=== PATIENT | male | born 1950 | race Caucasian/White ===

== ENCOUNTER 2019-04-24 07:23 | Observation (INO) | payer MEDICARE ==
--- NOTE | 2019-04-08 07:59 | HP ---
CC: Dr. Cristhian Bowden * HISTORY AND PHYSICAL: DATE OF PLANNED ADMISSION AND SURGERY: 04/24/19 HISTORY OF PRESENT ILLNESS: Mr. Loo is a 68-year-old white male who is admitted with prostate enlargement, bladder outlet obstruction for transurethral resection of the prostate. I have been following Mr. Loo for the last 16 months because of symptoms of bladder outlet obstruction. He initially presented because of urethral bleeding associated with straining for a bowel movement. He was noted then to have nocturia, day frequency, slow stream, hesitancy, and a feeling of incomplete bladder emptying. He was worked up for the gross hematuria and had a renal ultrasound, which showed 2 small nonobstructing left renal calculi. No other abnormalities were noted in the kidneys. He had an elevated postvoid residual of 250 cc. The patient was started on tamsulosin 0.4 mg daily. Cystoscopy showed a large obstructing prostate mostly by a prominent median lobe. The bladder showed diffuse trabeculations, no suspicious bladder lesions seen, no calculi or diverticulae. He was then started on finasteride. On follow-up visits, he reported only modest improvement in his voiding. He has not had any recurrences of the gross hematuria. While on the finasteride and the tamsulosin, he continued to have bothersome voiding symptoms with day frequency of less than every hour, nocturia about twice, slow stream, hesitancy , and strong urgency, but no incontinence. The patient was then worked up with urodynamic studies. The study showed a high voiding detrusor pressure, indicating good detrusor function. His flow was slow and intermittent. He had an elevated post-void residual of 220 cc. The urodynamic studies were consistent with bladder outlet obstruction making him a good candidate for TURP. PAST MEDICAL HISTORY AND SYSTEM REVIEW: He is in excellent health. He denies any cardiac or pulmonary diseases or symptoms. His only other medication is Ambien for sleep. The patient had a physical exam by Dr. Bowden two months ago including lab work and no abnormalities were noted and no other medication was recommended. FAMILY HISTORY: Negative for prostate carcinoma. His father at the age of 62 from abdominal aortic aneurysm. SOCIAL HISTORY: The patient is a former smoker and he stopped in 1989. He does not drink alcohol. He does not use any recreational drugs. He denies any allergies to medications. PHYSICAL EXAMINATION GENERAL: A pleasant, healthy and fit-looking white male who looks good for his age. VITAL SIGNS: Blood pressure 120/80, pulse of 64, oxygen saturation 96% on room air. LUNGS: Clear. HEART: Regular and rhythmic. No murmurs. ABDOMEN: Soft. No masses. No tenderness. No CVA tenderness. EXTERNAL GENITALIA: Normal. He is circumcised. No penile lesions. Normal testes and no inguinal hernias. RECTAL: Exam showed an enlarged, but non-suspicious prostate. LABORATORY DATA: The patient had a PSA of 2.2 in November 2016; it was down to 1.4 while on finasteride. IMPRESSION AND PLAN: Symptomatic bladder outlet obstruction with elevated postvoid residual, slow stream, and high voiding detrusor pressure on urodynamic studies, large obstructing prostate and large median lobe on cystoscopy, making him a good candidate for TURP. I discussed the operation in detail with the patient. Some of the potential complications including hematuria, urinary tract infection, small incidence of urinary incontinence, and high incidence of retrograde ejaculation. I also discussed the alternative procedures; however, considering the large median lobe , his best long-term result will be with the TURP. All his questions were answered. [id number]/[facility] #: [id number] KELLY
[~2019-04-24 07:23] MED LIST: Buffered Lidocaine 1% SYRIN* 1 ML/SYRINGE INTRADERM ONE; Dexamethasone IV* 4 MG/ML 1 ML (4 MG) IV SLOW PU ONE; Famotidine IV* 10 MG/ML 2 ML (20 mg) IV ONE; Lactated Ringers 1000 ML Bag* 1,000 ML IV SCH
[2019-04-24] MEDS ORDERED: Famotidine IV* 10 MG/ML 2 ML (20 mg) ONE (07:59)
[2019-04-24] MEDS ORDERED: cefTRIAXone(*) 2 GM ADDV.VIAL IVPB ONE (07:59)
[2019-04-24] MEDS ORDERED: Dexamethasone IV* 4 MG/ML 1 ML (4 MG) ONE (07:59)
[2019-04-24] MEDS ORDERED: fentaNYL* 50 MCG/ML 2 ML VIAL (100 MCG VIAL) ONE (09:28)
[2019-04-24] MEDS ORDERED: Midazolam* 1 MG/ML 2 ML VIAL (2 MG) ONE (09:29)
[2019-04-24] MEDS ORDERED: Ondansetron INJ* 2 MG/ML VIAL IV PRN (10:32)
[2019-04-24] MEDS ORDERED: fentaNYL* 50 MCG/ML 2 ML VIAL (100 MCG VIAL) IV PRN (10:32)
[2019-04-24] MEDS ORDERED: Naloxone* 0.4 MG/ML 1 ML VIAL IV PRN (10:32)
[2019-04-24] MEDS: Lactated Ringers 1000 ML Bag* 1,000 ML IV SCH ×2 (12:30→19:05)
--- NOTE | 2019-04-24 12:59 | OP ---
CC: Dr. Cristhian Bowden * DATE OF OPERATION: 04/24/19 - ROOM #343 DATE OF : 50 SURGEON: Carlton Hagen MD ANESTHESIOLOGIST: Spinal. ANESTHESIA: Dr. Krunal Clifton. PRE-OP DIAGNOSES: 1. Benign prostatic hyperplasia. 2. Bladder outlet obstruction due to above. POST-OP DIAGNOSES: 1. Benign prostatic hyperplasia. 2. Bladder outlet obstruction due to above. OPERATIVE PROCEDURE: 1. Cystoscopy. 2. Transurethral resection of the prostate. INDICATIONS: Mr. Loo is a 68-year-old white male whom I have been following because of prostate enlargement, bladder outlet obstruction associated with elevated postvoid residual, episodes of gross hematuria. Workup with cystoscopy and urodynamic studies showed a large obstructing prostate and elevated postvoid residual and high voiding detrusor pressure. He did not improve on medical treatment with tamsulosin and finasteride. Because of the above history and after discussing the options of management, the patient decided to proceed with transurethral resection of the prostate. PATHOLOGY: at cystoscopy, the penile and bulbar urethrae looked normal. The prostatic urethra measured 3 cm in length and there was significant degree of obstruction by trilobar hyperplasia of the prostate. There was increased vascularity of the prostatic urethra. Examination of the bladder showed no suspicious bladder lesions. There was moderate diffuse trabeculations. The prostate adenoma was large and moderately vascular. DESCRIPTION OF PROCEDURE: After successful spinal anesthesia, the patient was placed in the lithotomy position and was prepped and draped for cystoscopy. Cystoscopy was performed and the findings in the prostatic urethra and in the bladder were noted. The resectoscope was then introduced inside the bladder. Mannitol sorbitol solution was used for irrigation and the inflow and outflow were adjusted to avoid overdistention of the bladder. The protruding portions of the prostate adenoma into the bladder neck were then resected circumferentially. The median lobe was then resected to the level of the posterior bladder neck fibers. The resectoscope was then positioned in the mid prostatic urethra and the prostate adenoma was resected circumferentially. The significant bleeders were electrocoagulated. The resectoscope was then positioned just proximal to the verumontanum and the prostate adenoma was again resected circumferentially. The resectoscope was then positioned at the level of the veru. The left lobe was then resected starting at 5 o'clock and proceeding anteriorly. The right lobe was resected next. The anterior and the apical tissues were resected last. The limits of the resection were the bladder neck proximally, the verumontanum distally and the capsule circumferentially. There were deep cuts into the capsule on the right side at 11 o'clock. There was some bleeding from open sinus but it was controlled with the coagulation current. All the significant arterial bleeders were coagulated. At the completion of resection, the prostate fossa was wide open. The external sphincter and the veru were intact. Except for the capsule at 11 o'clock, there were no other deep cuts into the capsule and no significant bleeding noted. There was still some residual adenomatous tissue especially in the apical area but it did not seem to be obstructing. The bladder, trigone, and orifices were all intact. The bladder was then thoroughly irrigated and all the prostate chips were evacuated. After a final inspection which showed good hemostasis, no residual prostate tissue and no significant obstructing tissue, the resectoscope was then removed and the size 22-[place] catheter was passed inside the bladder and the balloon inflated with 40 cc of water. The catheter was placed under gentle traction and taped to the right thigh of the patient. Irrigation yielded clear returns. The patient tolerated the procedure well and left the operating room in good condition. The blood loss was estimated at about 100 cc. The specimen was prostate chips. All the inflow and outflow of the irrigation fluid was accounted for and was equal. [id number]/CPS #: [id number] MTDD
[2019-04-24] MEDS ORDERED: Oxybutynin TAB* 5 MG PO PRN (13:19)
[2019-04-24] MEDS ORDERED: Lidocaine 2% JELLY *30 ML TOPICAL PRN (13:21)
[2019-04-24] MEDS ORDERED: Zolpidem TAB* 10 MG PO PRN (20:26)
[2019-04-24] MEDS: oxyCODONE/Acetamin 5/325 MG* TAB PO PRN (23:27)
[2019-04-25] MEDS: Lactated Ringers 1000 ML Bag* 1,000 ML IV SCH (02:07)
[2019-04-25] MEDS ORDERED: cefTRIAXone(*) 1 GM in NS 0.9% 50 ML* 50 ML IVPB ONE (07:00)
[2019-04-25 07:40] VITALS: BP 118/71
[2019-04-25] MEDS: oxyCODONE/Acetamin 5/325 MG* TAB PO PRN (08:14)
[2019-04-25] MEDS ORDERED: Influenza VAC *QUAD* 2019-20* 0.5 ML SYRINGE IM ONE (09:00)
--- NOTE | 2019-04-25 09:03 | DS ---
CC: Dr. Cristhian Bowden * DISCHARGE SUMMARY: DATE OF ADMISSION: 04/24/19 DATE OF DISCHARGE: 04/25/19 FINAL DIAGNOSES: 1. Benign prostatic hyperplasia. 2. Bladder outlet obstruction due to above. OPERATION: Transurethral resection of the prostate on 04/24/19. HISTORY: Mr. Loo is a 68-year-old white male who has long history of bladder outlet obstruction. The symptoms persisted after he had been on tamsulosin and finasteride. Cystoscopy showed a large obstructing prostate. Urodynamic studies showed a high voiding detrusor pressure and elevated postvoid residual consistent with the diagnosis of prostate enlargement as a cause of his voiding symptoms. Because of the failure of medical treatment and persistent voiding symptoms and after discussing the options of management, the patient decided to proceed with transurethral resection of the prostate. PAST MEDICAL HISTORY AND SYSTEM REVIEW: He is in excellent health. He has no cardiac or pulmonary diseases. MEDICATIONS: His only other medication is Ambien for sleep. SOCIAL HISTORY: The patient is a nonsmoker. LABORATORY DATA: Preoperative lab work was all within normal. PSA was normal. COURSE IN HOSPITAL: The patient was admitted the morning of his surgery. He underwent an uncomplicated transurethral resection of the prostate under spinal anesthesia. He was kept overnight for observation. On the day of discharge, his urine has remained clear, his vital signs were normal and he had good urine output. He did not require any catheter irrigation. The patient is being discharged home in good condition on Moscoso catheter drainage. Instructions were given for follow up care. He is to continue on all his meds except for the tamsulosin which he can discontinue. He can use Advil PM every 8 hrs as needed for bladder spasms, pain. I will see him in the office in 5 days and the Moscoso catheter will be removed. Pathology on the resected prostate tissue was benign. [id number]/[facility] #: [id number] MTDYari
== END 2019-04-25 11:00 | disposition home or self-care (01) ==
LOC: OR 07:23 → SSU 11:10
PROVIDERS: ADMIT Urology; ATTEND Urology
DX: N40.1 Benign prostatic hyperplasia with lower urinary tract symptoms (principal); N13.8 Other obstructive and reflux uropathy; Z87.891 Personal history of nicotine dependence; Z23 Encounter for immunization; Z79.899 Other long term (current) drug therapy
CPT/HCPCS: 88305; 90471; 90686; 96361; 96365; 96366; A9270-GY; G0008; G0378; J0696; J1100; J2250; J3010